=== PATIENT | female | born 1965 | race African-American/Black ===

== ENCOUNTER 2017-05-18 15:30 | Emergency (ER) | payer MEDICAID ==
[~2017-05-18] VITALS: Ht 160 cm; Wt 70.0 kg
[~2017-05-18 15:30] MED LIST: ATEN50TA PO; ATOR-2 PO; CLOP75TA2 PO; GABA-531 PO; TRIA1TAB94 PO
[2017-05-18 16:50] VITALS: BP 161/90
== END 2017-05-18 17:25 | disposition home or self-care (01) ==
LOC: ER 16:50
DX: M54.5 Low back pain (principal); R03.0 Elevated blood-pressure reading, without diagnosis of hypertension; Z87.828 Personal history of other (healed) physical injury and trauma
CPT/HCPCS: 99282

== ENCOUNTER 2019-05-03 12:22 | Inpatient (IN) | payer MEDICAID ==
[~2019-05-03] VITALS: Ht 157.5 cm; Wt 54.9 kg
[~2019-05-03 12:22] MED LIST changes: +ASPI-1393 PO; -CLOP75TA2 PO
[2019-05-03] MEDS ORDERED: KETOROLAC 30MG/ML VIAL IM ONE (15:15)
[2019-05-03] MEDS ORDERED: METHOCARBAMOL 500MG TABLET PO ONE (15:15)
[2019-05-03] MEDS ORDERED: ASPIRIN 81MG TABLET PO ONE (16:00)
[2019-05-03 16:44] LABS: OPIATES URINE SCREEN NEGATIVE (NEGATIVE)
[2019-05-03 16:45] LABS: EOSINOPHILS % 1.2 % (0.0-5.0); HEMOGLOBIN. 14.8 g/dL (12.0-16.0); LYMPHOCYTES % 45.7 % (20.0-50.0); MEAN CORPUSCULAR HEMOGLOBIN 30.9 pg (28.0-32.0); MEAN CORPUSCULAR VOLUME 90.2 fL (81.0-99.0); MEAN PLATELET VOLUME 9.5 fl (7.4-10.4); MONOCYTES % 5.8 % (2.0-8.0); NEUTROPHILS % 46.3 % (40.0-76.0); PLATELET 249 x1000/uL (130-400); RED BLOOD CELL COUNT 4.77 mill/uL (4.2-5.4); RED CELL DISTRIBUTION WIDTH 12.1 % (11.6-14.6)
[2019-05-03 16:45] LABS: *BARBITURATES SCREEN URINE NEGATIVE (NEGATIVE); *BENZODIAZEPINES SCREEN URINE NEGATIVE (NEGATIVE); *COCAINE SCREEN URINE PRESUMTIVE POSITIVE (NEGATIVE); CANNABINOID URINE SCREEN PRESUMTIVE POSITIVE (NEGATIVE); PHENCYCLIDINE URINE SCREEN NEGATIVE (NEGATIVE)
[2019-05-03 16:46] LABS: METHADONE URINE SCREEN NEGATIVE (NEGATIVE)
[2019-05-03 16:47] LABS: *AMPHETAMINES SCREEN URINE NEGATIVE (NEGATIVE)
[2019-05-03 16:49] LABS: CHLORIDE 105 mEq/L (98-107)
[2019-05-03] MEDS ORDERED: NITROGLYCERIN 0.4MG TABLET SL SL PRN (20:30)
[2019-05-03] MEDS ORDERED: LORAZEPAM 0.5MG TABLET PO PRN (20:30)
[2019-05-03] MEDS ORDERED: IPRATROPIUM/ALBUTEROL 0.5-3(2.5)MG/3ML NEB INH PRN (20:30)
[2019-05-03] MEDS ORDERED: KETOROLAC 15MG/ML VIAL IV PRN (20:30)
[2019-05-03] MEDS ORDERED: ZOLPIDEM TARTRATE 5MG TABLET PO PRN (20:30)
[2019-05-03] MEDS ORDERED: DOCUSATE SODIUM 100MG CAPSULE PO PRN (20:30)
[2019-05-03] MEDS ORDERED: GUAIFENESIN 200MG/10ML SUGAR FREE UDC PO PRN (20:30)
[2019-05-03] MEDS ORDERED: ONDANSETRON HCL 4MG/2ML INJ IV PRN (20:30)
[2019-05-03] MEDS ORDERED: CLONIDINE 0.1MG TABLET PO PRN (20:30)
[2019-05-03] MEDS ORDERED: ACETAMINOPHEN 325MG TABLET PO PRN (20:30)
[2019-05-03] MEDS ORDERED: MAGNESIUM/ALUMINUM HYDROXIDE/SIMETHICONE 30ML UDC PO PRN (20:30)
[2019-05-03] MEDS ORDERED: ENOXAPARIN 40MG/0.4ML SYR SUBCUT SCH (22:30)
[2019-05-03] MEDS: FAMOTIDINE 20MG TABLET PO SCH (22:36)
[2019-05-04] MEDS ORDERED: DILTIAZEM HCL 60MG TABLET PO SCH
[2019-05-04 00:18] VITALS: BP 133/69
[2019-05-04 00:52] VITALS: BP 148/77
[2019-05-04 04:00] VITALS: BP 104/71
[2019-05-04 04:49] LABS: CREATINE KINASE 97 IU/L (26-192)
[2019-05-04 04:50] LABS: CREATINE KINASE MB FRACTION < 1.0 ng/mL (0.5-3.6)
[2019-05-04 08:00] VITALS: BP 126/79
[2019-05-04] MEDS ORDERED: ASPIRIN 325MG EC TABLET PO SCH (09:00)
[2019-05-04] MEDS: FAMOTIDINE 20MG TABLET PO SCH (09:08)
[2019-05-04 10:39] VITALS: BP 126/79
== END 2019-05-04 11:25 | disposition home or self-care (01) | DRG 816 ==
LOC: ER 12:22 → 6WST 19:46 → EDBEDREQTM 20:08 → EDBEDREQ 20:08 → ENRESERV 20:18
PROVIDERS: ADMIT Internal Medicine; ATTEND Internal Medicine
DX: T40.5X1A Poisoning by cocaine, accidental (unintentional), initial encounter (principal); E78.00 Pure hypercholesterolemia, unspecified; R07.9 Chest pain, unspecified; F14.10 Cocaine abuse, uncomplicated; F17.210 Nicotine dependence, cigarettes, uncomplicated; I10 Essential (primary) hypertension; J45.909 Unspecified asthma, uncomplicated; Z71.6 Tobacco abuse counseling; Y92.89 Other specified places as the place of occurrence of the external cause; Z88.0 Allergy status to penicillin; V89.2XXA Person injured in unspecified motor-vehicle accident, traffic, initial encounter; Y92.410 Unspecified street and highway as the place of occurrence of the external cause; Z68.22 Body mass index [BMI] 22.0-22.9, adult
CPT/HCPCS: 36415; 71045; 73630; 80061; 80305; 82550; 82553; 83036; 83880; 84484; 93005; 96372; 99285; J1650; J1885

== ENCOUNTER 2019-10-17 18:34 | Emergency (ER) | payer MEDICAID ==
[~2019-10-17] VITALS: Ht 160 cm; Wt 67.0 kg
[~2019-10-17 18:34] MED LIST changes: -ASPI-1393 PO; +ASPI-1497 PO
[2019-10-17] MEDS ORDERED: IBUPROFEN 600MG TABLET PO STA (21:58)
[2019-10-17 22:12] LABS: CLARITY URINE CLEAR (CLEAR); COLOR URINE YELLOW (YELLOW); KETONES URINE NEGATIVE (NEGATIVE); LEUKOCYTE ESTERASE URINE TRACE (NEGATIVE); NITRITE URINE NEGATIVE (NEGATIVE); OCCULT BLOOD URINE NEGATIVE (NEGATIVE); PH URINE 7.5 (4.5-8.0); PROTEIN URINE NEGATIVE (NEGATIVE); SPECIFIC GRAVITY URINE 1.011 (1.005-1.030)
[2019-10-17 22:49] LABS: BASOPHILS % 0.7 % (0.0-2.0); HEMATOCRIT. 40.5 % (36.0-48.0); LYMPHOCYTES % 48.6 % (20.0-50.0); MEAN CORPUSCULAR HEMOGLOBIN 30.9 pg (28.0-32.0); MEAN CORPUSCULAR VOLUME 89.3 fL (81.0-99.0); MEAN PLATELET VOLUME 9.6 fl (7.4-10.4); MONOCYTES % 5.4 % (2.0-8.0); NEUTROPHILS % 44.3 % (40.0-76.0); PLATELET 201 x1000/uL (130-400); RED BLOOD CELL COUNT 4.53 mill/uL (4.2-5.4); RED CELL DISTRIBUTION WIDTH 12.5 % (11.6-14.6)
[2019-10-17 22:57] LABS: CHLORIDE 110 mEq/L (98-107)
[2019-10-18] MEDS ORDERED: AMLODIPINE 5MG TABLET PO ONE (00:15)
[2019-10-18 01:04] VITALS: BP 171/67
== END 2019-10-18 01:05 | disposition home or self-care (01) ==
LOC: ER 18:46
DX: N30.00 Acute cystitis without hematuria (principal); F17.210 Nicotine dependence, cigarettes, uncomplicated; Z71.6 Tobacco abuse counseling
CPT/HCPCS: 36415; 74018; 80053; 81003; 85025; 99284; 99406